=== PATIENT | male | born 1975 | race Two or more races ===

== ENCOUNTER → 2019-08-11 | Emergency (ER) | payer OTHER ==
[~2019-08-11] VITALS: Ht 203.2 cm; Wt 76.7 kg
== END | disposition home or self-care (01) ==
LOC: ER 13:30
DX: S93.491A Sprain of other ligament of right ankle, initial encounter (principal); X50.1XXA Overexertion from prolonged static or awkward postures, initial encounter; Y93.89 Activity, other specified; Y92.89 Other specified places as the place of occurrence of the external cause; Y99.8 Other external cause status

== ENCOUNTER 2020-01-17 13:53 | Outpatient (CLI) | payer OTHER | END 2020-01-17 13:55 | disposition home or self-care (01) | LOC: RAD 13:53 | DX: M54.5 Low back pain (principal); I70.209 Unspecified atherosclerosis of native arteries of extremities, unspecified extremity ==

== ENCOUNTER 2020-01-23 07:33 | Outpatient (CLI) | payer OTHER | END 2020-01-23 08:03 | disposition home or self-care (01) | LOC: LAB 07:33 | PROVIDERS: ATTEND General Practice | DX: N39.0 Urinary tract infection, site not specified (principal); Z20.828 Contact with and (suspected) exposure to other viral communicable diseases; D64.89 Other specified anemias; E78.49 Other hyperlipidemia; E11.9 Type 2 diabetes mellitus without complications; E03.8 Other specified hypothyroidism ==

== ENCOUNTER 2021-08-23 10:53 | Outpatient (CLI) | payer OTHER | END 2021-08-23 10:59 | disposition home or self-care (01) | LOC: RAD 10:53 | PROVIDERS: ATTEND General Practice | DX: I10 Essential (primary) hypertension (principal); I70.208 Unspecified atherosclerosis of native arteries of extremities, other extremity ==

== ENCOUNTER 2022-02-23 12:17 | Outpatient (CLI) | payer OTHER | END 2022-02-23 12:21 | disposition home or self-care (01) | LOC: RAD 12:17 | PROVIDERS: ATTEND General Practice | DX: M25.579 Pain in unspecified ankle and joints of unspecified foot (principal) ==